=== PATIENT | female | born 1970 ===

== ENCOUNTER 2021-10-17 10:24 | Day surgery (SDC) | payer OTHER ==
[~2021-10-17 10:24] MED LIST: AMOX1TAB12 PO; DICLOFENAC SODI50 MG PO
== END 2021-10-17 19:20 | disposition home or self-care (01) ==
LOC: CIR.AMB 10:24
PROVIDERS: ATTEND Student in an Organized Health Care Education/Training Program
DX: N36.1 Urethral diverticulum (principal); Z20.822 Contact with and (suspected) exposure to COVID-19

== ENCOUNTER 2023-06-15 21:24 | Emergency (ER) | payer OTHER ==
[~2023-06-15] VITALS: Ht 172.7 cm; Wt 83.0 kg
[2023-06-15] MEDS ORDERED: CRESTOR5 MG (21:55)
[2023-06-15] MEDS ORDERED: AMLODIPINE-OLM1 EAC2 (21:55)
== END 2023-06-15 23:33 | disposition home or self-care (01) ==
LOC: ER 21:24
DX: S49.91XA Unspecified injury of right shoulder and upper arm, initial encounter (principal); X58.XXXA Exposure to other specified factors, initial encounter; Y93.9 Activity, unspecified; Y92.9 Unspecified place or not applicable; Y99.9 Unspecified external cause status

== ENCOUNTER 2024-05-17 13:30 | Outpatient (CLI) | payer OTHER ==
[~2024-05-17 13:30] MED LIST changes: +AMLODIPINE-OLM1 EAC2; +CRESTOR5 MG
== END 2024-05-17 13:36 | disposition home or self-care (01) ==
LOC: MRI 13:30
PROVIDERS: ATTEND Specialist
DX: S83.001A Unspecified subluxation of right patella, initial encounter (principal); M17.9 Osteoarthritis of knee, unspecified
CPT/HCPCS: 73721

== ENCOUNTER 2025-02-26 16:11 | Outpatient (CLI) | payer OTHER | END 2025-02-26 16:17 | disposition home or self-care (01) | LOC: RAD 16:11 | PROVIDERS: ATTEND Specialist | DX: J45.998 Other asthma (principal); J32.9 Chronic sinusitis, unspecified ==